=== PATIENT | male | born 1955 | race Two or more races ===

== ENCOUNTER 2019-10-10 22:06 | Inpatient (IN) | payer MEDICARE ==
[~2019-10-10] VITALS: Ht 175.3 cm; Wt 98.9 kg
[2019-10-10 22:57] LABS: BASOPHILS % (AUTO) 0.3 % (0.0-2.0); EOSINOPHILS % (AUTO) 1.1 % (0.0-3.0); HEMATOCRIT 28.8 % (42.0-52.0); HEMOGLOBIN 9.5 G/DL (14.2-18.0); LYMPHOCYTES % (AUTO) 9.2 % (20.0-45.0); MEAN CORPUSCULAR VOLUME 95 FL (80-99); NEUTROPHILS % (AUTO) 84.4 % (45.0-75.0); PLATELET COUNT 190 K/UL (150-450); RED BLOOD COUNT 3.04 M/UL (4.70-6.10); RED CELL DISTRIBUTION WIDTH 13.5 % (11.6-14.8); WHITE BLOOD COUNT 7.5 K/UL (4.8-10.8)
[2019-10-10 23:00] VITALS: BP 196/104
[2019-10-10] MEDS ORDERED: dexAMETHasone 10mg/ml Inj IV ONE (23:00)
--- NOTE | 2019-10-10 23:02 | Diagnostic Imaging Report ---
EXAM: XR Chest, 1 View CLINICAL HISTORY: SOB TECHNIQUE: Frontal view of the chest. COMPARISON: 09/05/08 FINDINGS: Lungs: Extensive bilateral mid and lower lung patchy airspace opacities could represent multifocal pneumonia including viral pneumonia. This can also be seen with pulmonary edema. Pleural space: Unremarkable. No pneumothorax. Heart: Unremarkable. No cardiomegaly. Mediastinum: Mildly prominent cardio mediastinal silhouette, likely due at least in part to portable technique. Bones/joints: No acute abnormality Other findings: If there is further concern, consider CT. IMPRESSION: 1. Extensive bilateral mid and lower lung patchy airspace opacities could represent multifocal pneumonia including viral pneumonia. This can also be seen with pulmonary edema. 2. Mildly prominent cardio mediastinal silhouette, likely due at least in part to portable technique. 3. If there is further concern, consider CT.
[2019-10-10 23:11] LABS: ANION GAP 16 mmol/L (5-15); BLOOD UREA NITROGEN 68 mg/dL (7-18); CALCIUM 7.8 MG/DL (8.5-10.1); CARBON DIOXIDE 20 MMOL/L (21-32); CHLORIDE 95 MMOL/L (98-107); CREATININE 7.9 MG/DL (0.55-1.30); POTASSIUM 4.2 MMOL/L (3.5-5.1); SODIUM 131 MMOL/L (136-145)
[2019-10-10 23:27] LABS: ALANINE AMINOTRANSFERASE 20 U/L (12-78); ALBUMIN 2.4 G/DL (3.4-5.0); ALBUMIN/GLOBULIN RATIO 0.4 (1.0-2.7); ALKALINE PHOSPHATASE 76 U/L (46-116); ASPARTATE AMINO TRANSFERASE 22 U/L (15-37); BILIRUBIN,TOTAL 0.4 MG/DL (0.2-1.0); CKMB 2.6 NG/ML (0.0-3.6); FERRITIN 249 NG/ML (8-388)
[2019-10-10] MEDS ORDERED: Azithromycin 500 MG in NS 275 ML IV ONE (23:30)
[2019-10-10] MEDS ORDERED: cefTRIAXone 1 GM in NS 55 ML IVPB ONE (23:30)
[2019-10-10] MEDS ORDERED: Enoxaparin 60mg Inj SUBQ ONE (23:30)
[2019-10-11] VITALS (9 sets, daily range): BP systolic 154–190; BP diastolic 66–103
[2019-10-11] MEDS ORDERED: Zolpidem 5mg tab ORAL PRN (00:30)
[2019-10-11] MEDS ORDERED: Promethazine/Codeine 5ml UD ORAL PRN (00:30)
[2019-10-11] MEDS ORDERED: Miralax 17gm pkt ORAL PRN (00:30)
[2019-10-11] MEDS ORDERED: Albuterol/Ipratropium 3ml neb HHN PRN ×2 (00:30)
--- NOTE | 2019-10-11 00:47 | Emergency Room Report ---
History of Present Illness General Chief Complaint: Dyspnea/Respdistress Source: Patient, EMS Present Illness HPI 63-year-old male presents for shortness of breath. Brought in by EMS from home. O2 sats low on room air. Patient tested positive for COVID last week. Started getting short of breath few days ago. Denies chest pain. Denies fevers or chills. Denies nausea or vomiting. No other aggravating relieving factors. 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 COVID-19 Screening: Positive COVID-19 COVID-19 Testing Source: outside source Patient History Past Medical History: DM, HTN Past Surgical History: none Pertinent Family History: none Social History: Denies: smoking, alcohol use, drug use Immunizations: UTD Reviewed Nursing Documentation: PMH: Agreed; PSxH: Agreed Nursing Documentation-PMH Hx Hypertension: Yes Hx Diabetes: Yes Review of Systems All Other Systems: negative except mentioned in HPI Physical Exam Vital Signs Date Time Temp Pulse Resp B/P (MAP) Pulse Ox O2 Delivery O2 Flow Rate FiO2 10/10/19 22:03 99.3 110 26 220/110 (146) 84 Nasal Cannula 6.0 Sp02 EP Interpretation: reviewed, normal General Appearance: no apparent distress, alert, GCS 15, non-toxic Head: normocephalic, atraumatic Eyes: bilateral eye normal inspection, bilateral eye PERRL ENT: hearing grossly normal, normal pharynx, no angioedema, normal voice Neck: full range of motion, supple/symm/no masses Respiratory: chest non-tender, normal breath sounds, crackles, speaking full sentences Cardiovascular #1: regular rate, rhythm, no edema Cardiovascular #2: 2+ carotid (R), 2+ carotid (L), 2+ radial (R), 2+ radial (L) , 2+ dorsalis pedis (R), 2+ dorsalis pedis (L) Gastrointestinal: normal bowel sounds, non tender, soft, non-distended, no guarding, no rebound Rectal: deferred Genitourinary: normal inspection, no CVA tenderness Musculoskeletal: back normal, normal range of motion, gait/station normal, non- tender Neurologic: alert, motor strength/tone normal, oriented x3, sensory intact, responsive, speech normal Psychiatric: judgement/insight normal, memory normal, mood/affect normal, no suicidal/homicidal ideation Reflexes: 3+ bicep (R), 3+ bicep (L), 3+ tricep (R), 3+ tricep (L), 3+ knee (R) , 3+ knee (L) Skin: other - see nursing notes Lymphatic: no adenopathy Procedures Critical Care Time Critical Care Time i. I feel this is a highly complex case requiring extensive working including EKG/Rhythm strip, Xray/CT/US, Blood/urine lab work, repeat exams while in ED, and administration of strong opiates/narcotics for pain control, admission to hospital or close patient follow up. Total time: 60 min bedside evaluation and treatment excludes procedures (EKG). Reason for critical care: SOB, COVID+, hypoxic Possible complications: hypotension, hypertension, GA, shock, arrhythmias, metabolic acidosis, end organ damage, respiratory failure. Interventions: labs, EKG, CXR, COVID, Dexamethasone, Lovenox, Abx Course: Patient presenting with shortness of breath. Placed on simple mask. Tested positive for COVID last week. Rapid COVID positive. Chest x-ray shows diffuse bilateral infiltrates. BUN/creatinine elevated. History of end-stage renal disease. CRP elevated. D-dimer elevated. Given dexamethasone. Given Lovenox. Given antibiotics. Consultations: nursing staff, EMS, family Performed by: Dr Amador Tolerated well condition = serious j. because of unstable vital signs this patient had a condition that could potentially threaten life or limb. I feel this is a critical patient who required my full attention while patient was considered critical. Total Critical Care Time excluding procedures was greater than 60 minutes Medical Decision Making Diagnostic Impression: Primary Impression: COVID-19 Additional Impressions: Dyspnea Qualified Codes: R06.00 - Dyspnea, unspecified ESRD (end stage renal disease) ER Course Hospital Course 63-year-old male presents with hypoxia, shortness of breath. Recent COVID positive diagnosis Differential diagnoses include: Pneumonia, CHF exacerbation, pneumothorax, fluid overload Clinical course Patient placed on stretcher. In isolation. I wore full PPE. On director of cardiac rehabilitation with hypoxia on room air. started on simple mask. After initial history and physical, I ordered labs, EKG, chest x-ray, blood cultures, UA. Labs - no leukocytosis, hemoglobin/hematocrit stable, BUN/Cr elevated, lactate okay troponins negative CRP eelvated, ddimer elevated, rapid COVID positive EKG - NSR no acute ischemic changes interpreted by me CXR - bilateral patchy opacities concerning for COVID O2 sats improved on simple mask. Not in respiratory distress. Speaking full sentences. Given dexamethasone. given lovenox. given broad abx Patient is [facility] However they are unable to facilitate transfer for COVID positive patients at this time Case discussed with Dr. Arceo and he agreed to the patient to his service for further care and support I feel this is a highly complex case requiring extensive working including EKG/ Rhythm strip, Xray/CT/US, Blood/urine lab work, repeat exams while in ED, and administration of strong opiates/narcotics for pain control, admission to hospital or close patient follow up. Diagnosis -COVID 19, dyspnea, ESRD Patient admitted to telemetry in serious condition Labs Test 10/10/19 22:35 White Blood Count 7.5 K/UL (4.8-10.8) Red Blood Count 3.04 M/UL (4.70-6.10) Hemoglobin 9.5 G/DL (14.2-18.0) Hematocrit 28.8 % (42.0-52.0) Mean Corpuscular Volume 95 FL (80-99) Mean Corpuscular Hemoglobin 31.2 PG (27.0-31.0) Mean Corpuscular Hemoglobin Concent 32.9 G/DL (32.0-36.0) Red Cell Distribution Width 13.5 % (11.6-14.8) Platelet Count 190 K/UL (150-450) Mean Platelet Volume 4.7 FL (6.5-10.1) Neutrophils (%) (Auto) 84.4 % (45.0-75.0) Lymphocytes (%) (Auto) 9.2 % (20.0-45.0) Monocytes (%) (Auto) 5.0 % (1.0-10.0) Eosinophils (%) (Auto) 1.1 % (0.0-3.0) Basophils (%) (Auto) 0.3 % (0.0-2.0) Prothrombin Time 10.8 SEC (9.30-11.50) Prothromb Time International Ratio 1.0 (0.9-1.1) Activated Partial Thromboplast Time 34 SEC (23-33) D-Dimer 1.26 mg/L FEU (0.00-0.49) Sodium Level 131 MMOL/L (136-145) Potassium Level 4.2 MMOL/L (3.5-5.1) Chloride Level 95 MMOL/L (98-107) Carbon Dioxide Level 20 MMOL/L (21-32) Anion Gap 16 mmol/L (5-15) Blood Urea Nitrogen 68 mg/dL (7-18) Creatinine 7.9 MG/DL (0.55-1.30) Estimat Glomerular Filtration Rate 7.0 mL/min (>60) Glucose Level 261 MG/DL (74-106) Lactic Acid Level 0.70 mmol/L (0.4-2.0) Calcium Level 7.8 MG/DL (8.5-10.1) Ferritin 249 NG/ML (8-388) Total Bilirubin 0.4 MG/DL (0.2-1.0) Aspartate Amino Transf (AST/SGOT) 22 U/L (15-37) Alanine Aminotransferase (ALT/SGPT) 20 U/L (12-78) Alkaline Phosphatase 76 U/L (46-116) Lactate Dehydrogenase 304 U/L (81-234) Creatine Kinase MB 2.6 NG/ML (0.0-3.6) Troponin I 0.000 ng/mL (0.000-0.056) C-Reactive Protein, Quantitative 52.3 mg/dL (0.00-0.90) Total Protein 8.2 G/DL (6.4-8.2) Albumin 2.4 G/DL (3.4-5.0) Globulin 5.8 g/dL Albumin/Globulin Ratio 0.4 (1.0-2.7) EKG Diagnostic Results Rate: normal Rhythm: NSR ST Segments: no acute changes ASA given to the pt in ED: No Rhythm Strip Diag. Results EP Interpretation: yes Rhythm: NSR, no PVC's, no ectopy Chest X-Ray Diagnostic Results Chest X-Ray Diagnostic Results : Chest X-Ray Ordered: Yes # of Views/Limited/Complete: 1 View Indication: Shortness of Breath EP Interpretation: Yes Interpretation: no effusion, no pneumothorax, other - bilateral patchy infiltrates Impression: Other - pneumonia Electronically Signed by: Electronically signed by Ren Amador MD Last Vital Signs Date Time Temp Pulse Resp B/P (MAP) Pulse Ox O2 Delivery O2 Flow Rate FiO2 10/10/19 22:03 99.3 110 26 220/110 (146) 84 Nasal Cannula 6.0 Status: improved Disposition: ADMITTED INPATIENT Condition: Serious Referrals: [facility] (PCP) Ren Amador MD Oct 11, 2019 00:47
[2019-10-11] MEDS ORDERED: LORAZEPAM2 MG/1 M4 ORAL (01:55)
[2019-10-11] MEDS ORDERED: FERROUS SULFAT325 MG ORAL (01:56)
[2019-10-11] MEDS ORDERED: PROCRIT2000 UNIT/ SUBQ (01:57)
[2019-10-11] MEDS ORDERED: KEPPRA500 M4 ORAL (02:01)
[2019-10-11] MEDS ORDERED: LANTUS SOL100 UNIT/1 SUBQ (02:02)
[2019-10-11] MEDS ORDERED: GABAPENTIN100 MG ORAL (02:03)
[2019-10-11] MEDS ORDERED: ROXICODONE15 MG ORAL (02:04)
[2019-10-11] MEDS ORDERED: CALCIUM CARBON400 MG PO (02:07)
[2019-10-11] MEDS ORDERED: METOPROLOL TART25 MG ORAL (02:08)
[2019-10-11] MEDS ORDERED: AMLODIPINE BESYL5 MG ORAL (02:09)
[2019-10-11] MEDS ORDERED: LIPITOR80 MG ORAL (02:09)
[2019-10-11] MEDS ORDERED: CYMBALTA20 MG ORAL (02:10)
[2019-10-11] MEDS ORDERED: VITAMIN D310 MC1 PO (02:12)
[2019-10-11] MEDS ORDERED: ASPIRIN EC81 MG ORAL (02:13)
[2019-10-11] MEDS ORDERED: COZAAR100 MG ORAL (02:13)
[2019-10-11 03:35] LABS: APPEARANCE,URINE CLEAR; BILIRUBIN, URINE NEGATIVE (NEGATIVE); COLOR,URINE PALE YELLOW; GLUCOSE, URINE (UA) 3+ (NEGATIVE); KETONES,URINE NEGATIVE (NEGATIVE); LEUKOCYTE ESTERASE ,URINE NEGATIVE (NEGATIVE); NITRITE,URINE NEGATIVE (NEGATIVE); PH,URINE 5 (4.5-8.0); PROTEIN,URINE 4+ (NEGATIVE); UROBILINOGEN,URINE NORMAL MG/DL (0.0-1.0)
[2019-10-11] MEDS: NovoLOG Insulin Flexpen SUBQ SCH ×4 (06:29→22:17)
[2019-10-11 07:28] LABS: APPEARANCE,URINE CLEAR; BILIRUBIN, URINE NEGATIVE (NEGATIVE); COLOR,URINE PALE YELLOW; GLUCOSE, URINE (UA) 3+ (NEGATIVE); KETONES,URINE NEGATIVE (NEGATIVE); LEUKOCYTE ESTERASE ,URINE NEGATIVE (NEGATIVE); NITRITE,URINE NEGATIVE (NEGATIVE); PH,URINE 5 (4.5-8.0); PROTEIN,URINE 4+ (NEGATIVE); UROBILINOGEN,URINE NORMAL MG/DL (0.0-1.0)
[2019-10-11] MEDS ORDERED: Heparin 5000 units/ml inj SUBQ SCH (09:00)
[2019-10-11] MEDS: Heparin 5000 units/ml inj SUBQ SCH ×2 (09:30→22:16)
[2019-10-11 10:56] LABS: HEMOGLOBIN 9.2 G/DL (14.2-18.0); MEAN CORPUSCULAR VOLUME 93 FL (80-99); PLATELET COUNT 199 K/UL (150-450); RED BLOOD COUNT 2.99 M/UL (4.70-6.10); RED CELL DISTRIBUTION WIDTH 12.4 % (11.6-14.8); WHITE BLOOD COUNT 9.2 K/UL (4.8-10.8)
--- NOTE | 2019-10-11 11:32 | Consultation ---
Consult Note Consult Note Asked to evaluate at the request of Dr. Arceo, for renal failure Patient interviewed. Patient is known to have chronic kidney disease. Patient was planned to get started on peritoneal dialysis. Chief Complaint: Dyspnea/Respdistress 63-year-old male presents for shortness of breath. Brought in by EMS from home. O2 sats low on room air. Patient tested positive for COVID last week. Started getting short of breath few days ago. Denies chest pain. Denies fevers or chills. Denies nausea or vomiting. No other aggravating relieving factors. 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 GENERAL: Patient is well-developed and well-nourished male, who is in moderate respiratory distress. HEENT: Eyes, pupils are equal and responsive to light and accommodation. Extraocular movements are intact. NECK: Supple without lymphadenopathy. CHEST: Decreased breath sounds bases bilaterally occasional rhonchi CARDIOVASCULAR: Tachycardic, occasional irregular beats ABDOMEN: Soft, nontender, nondistended. Positive bowel sounds. No evidence of hepatosplenomegaly. Currently, no rebound or guarding noted. EXTREMITIES: Negative for clubbing, cyanosis, mild edema present RECTAL/GENITAL: Not performed. NEUROLOGIC: Cranial nerves II through XII grossly intact without focal deficits. Motor strength is 5/5 bilaterally. Deep tendon reflexes are 2+ plantar. LABORATORY STUDIES: WBC 7.5, hemoglobin 9.5, hematocrit 28.8, platelets 190,000. Sodium 131, potassium 4.2, chloride 95, CO2 20, BUN 68, creatinine 7.9, glucose 261. A chest x-ray was reported as extensive bilateral lower lung patchy airspace opacities consistent with pneumonia. . Assessment/Plan ESRD (end stage renal disease) COVID-19 Dyspnea HTN DM Plan: Discussed with patient and he is agreeable to dialysis. Will obtain consent and arrange for dialysis. Continue per consultants. Chest x-ray: IMPRESSION: 1. Extensive bilateral mid and lower lung patchy airspace opacities could represent multifocal pneumonia including viral pneumonia. This can also be seen with pulmonary edema. 2. Mildly prominent cardio mediastinal silhouette, likely due at least in part to portable technique. 3. If there is further concern, consider CT. Vel Michaels MD Oct 11, 2019 11:32
[2019-10-11 11:51] LABS: ANION GAP 15 mmol/L (5-15); BLOOD UREA NITROGEN 73 mg/dL (7-18); CALCIUM 7.7 MG/DL (8.5-10.1); CARBON DIOXIDE 20 MMOL/L (21-32); CHLORIDE 95 MMOL/L (98-107); CREATININE 8.4 MG/DL (0.55-1.30); POTASSIUM 5.4 MMOL/L (3.5-5.1); SODIUM 130 MMOL/L (136-145)
[2019-10-11 11:54] LABS: ALANINE AMINOTRANSFERASE 20 U/L (12-78); ALBUMIN 2.2 G/DL (3.4-5.0); ALBUMIN/GLOBULIN RATIO 0.4 (1.0-2.7); ALKALINE PHOSPHATASE 71 U/L (46-116); ASPARTATE AMINO TRANSFERASE 25 U/L (15-37); BILIRUBIN,TOTAL 0.3 MG/DL (0.2-1.0); CHOLESTEROL 102 MG/DL (< 200); HDL CHOLESTEROL 25 MG/DL (40-60); PHOSPHORUS 5.5 MG/DL (2.5-4.9); TRIGLYCERIDES 172 MG/DL (30-150)
[2019-10-11] MEDS ORDERED: Heparin1,000 units/500ml Premix(Conc:2 units/ml) IV PRN (12:15)
[2019-10-11] MEDS ORDERED: Lidocaine 1% Plain 30 ml INJ PRN (12:15)
--- NOTE | 2019-10-11 12:40 | Consultation ---
History of Present Illness General Date patient seen: Oct 11, 2019 Chief Complaint: Dyspnea/Respdistress Present Illness HPI 63-year-old male with hx of HTN, DM, advanced chronic renal insufficiency presented to ER with CC of shortness of breath. His O2 sats were low on room air. Patient tested positive for COVID last week and started getting short of breath few days ago. Pt's CXR in ER showed extensive bilateral infiltrate. He is admitted to [facility] for further evaluation. Allergies: Coded Allergies: No Known Allergies (Unverified , 10/10/19) Medication History Scheduled Amlodipine Besylate* (Amlodipine Besylate*), 5 MG ORAL DAILY, (Reported) Aspirin Ec* (Aspirin Ec*), 81 MG ORAL DAILY, (Reported) Atorvastatin (Lipitor), 80 MG ORAL BEDTIME, (Reported) Calcium Carbonate (Calcium Carbonate), 400 MG PO TID, (Reported) Cholecalciferol (Vitamin D3) (Vitamin D3), 1,000 UNITS PO DAILY, (Reported) Duloxetine (Cymbalta), 30 MG ORAL DAILY, (Reported) Epoetin Ellis (Procrit), 5,000 UNIT SUBQ QWEEK, (Reported) Ferrous Sulfate* (Ferrous Sulfate*), 325 MG ORAL BID, (Reported) Gabapentin* (Gabapentin*), 300 MG ORAL DAILY, (Reported) Insulin Glargine (Lantus), 20 SUBQ BID, (Reported) Levetiracetam (Keppra), 250 MG ORAL DAILY, (Reported) Lorazepam (Lorazepam), 1 MG ORAL BID, (Reported) Losartan Potassium (Cozaar), 50 MG ORAL DAILY, (Reported) Metoprolol Tartrate* (Metoprolol Tartrate*), 25 MG ORAL EVERY 12 HOURS, ( Reported) Scheduled PRN OXYCODONE HCl* (Roxicodone*), 5 MG ORAL Q4HR PRN for For Pain, (Reported) Patient History Healthcare decision maker Resuscitation status Advanced Directive on File Past Medical/Surgical History Past Medical/Surgical History: (1) Chronic renal failure, stage 4 (severe) (2) Diabetes mellitus (3) History of hypertension Review of Systems All Other Systems: negative except mentioned in HPI Physical Exam General Appearance: WD/WN, no apparent distress Lines, tubes and drains: peripheral HEENT: normocephalic, atraumatic Neck: non-tender, normal alignment Respiratory/Chest: chest wall non-tender, lungs clear Cardiovascular/Chest: normal peripheral pulses, normal rate Abdomen: normal bowel sounds, non tender Genitourinary/Rectal: normal genital exam, normal rectal exam Extremities: normal range of motion Skin Exam: normal pigmentation 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 Last 24 Hour Vital Signs Date Time Temp Pulse Resp B/P (MAP) Pulse Ox O2 Delivery O2 Flow Rate FiO2 10/11/19 09:00 Non-Rebreather 15.0 10/11/19 08:58 179/85 10/11/19 08:00 97.3 95 28 179/85 (116) 100 10/11/19 08:00 92 10/11/19 03:27 96 10/11/19 03:05 97.6 93 24 154/85 (108) 98 10/11/19 03:05 Non-Rebreather 15.0 10/11/19 02:24 97 10/11/19 02:16 97.9 88 20 177/94 (121) 98 10/11/19 02:10 98.8 90 21 161/66 98 Non-Rebreather 10.0 10/11/19 02:00 98.8 90 21 161/66 98 Non-Rebreather 10.0 10/11/19 01:00 98.8 92 24 179/90 97 Non-Rebreather 10.0 10/11/19 00:00 98.9 99 24 190/103 98 Non-Rebreather 10.0 10/10/19 23:00 98.9 98 28 196/104 95 Non-Rebreather 10.0 10/10/19 22:30 110 26 Nasal Cannula 6.0 10/10/19 22:03 99.3 110 26 220/110 (146) 84 Nasal Cannula 6.0 Intake and Output 10/10/19 10/11/19 19:00 07:00 Intake Total 100 ml Output Total 400 ml Balance -300 ml Intake Oral 100 ml Output Urine Total 400 ml # Voids 1 Laboratory Tests Test 10/10/19 22:17 10/10/19 22:35 10/11/19 03:23 10/11/19 06:00 Arterial Blood pH 7.264 (7.350-7.450) Arterial Blood Partial Pressure CO2 38.0 mmHg (35.0-45.0) Arterial Blood Partial Pressure O2 125.8 mmHg (75.0-100.0) H Arterial Blood HCO3 16.8 mmol/L (22.0-26.0) *L Arterial Blood Oxygen Saturation 97.7 % (95-100) Arterial Blood Base Excess -9.4 (-2-2) *L Migel Test Positive White Blood Count 7.5 K/UL (4.8-10.8) Red Blood Count 3.04 M/UL (4.70-6.10) L Hemoglobin 9.5 G/DL (14.2-18.0) L Hematocrit 28.8 % (42.0-52.0) L Mean Corpuscular Volume 95 FL (80-99) Mean Corpuscular Hemoglobin 31.2 PG (27.0-31.0) H Mean Corpuscular Hemoglobin Concent 32.9 G/DL (32.0-36.0) Red Cell Distribution Width 13.5 % (11.6-14.8) Platelet Count 190 K/UL (150-450) Mean Platelet Volume 4.7 FL (6.5-10.1) L Neutrophils (%) (Auto) 84.4 % (45.0-75.0) H Lymphocytes (%) (Auto) 9.2 % (20.0-45.0) L Monocytes (%) (Auto) 5.0 % (1.0-10.0) Eosinophils (%) (Auto) 1.1 % (0.0-3.0) Basophils (%) (Auto) 0.3 % (0.0-2.0) Prothrombin Time 10.8 SEC (9.30-11.50) Prothromb Time International Ratio 1.0 (0.9-1.1) Activated Partial Thromboplast Time 34 SEC (23-33) H D-Dimer 1.26 mg/L FEU (0.00-0.49) H Sodium Level 131 MMOL/L (136-145) L Potassium Level 4.2 MMOL/L (3.5-5.1) Chloride Level 95 MMOL/L (98-107) L Carbon Dioxide Level 20 MMOL/L (21-32) L Anion Gap 16 mmol/L (5-15) H Blood Urea Nitrogen 68 mg/dL (7-18) H Creatinine 7.9 MG/DL (0.55-1.30) H Estimat Glomerular Filtration Rate 7.0 mL/min (>60) Glucose Level 261 MG/DL (74-106) H Lactic Acid Level 0.70 mmol/L (0.4-2.0) Calcium Level 7.8 MG/DL (8.5-10.1) L Ferritin 249 NG/ML (8-388) Total Bilirubin 0.4 MG/DL (0.2-1.0) Aspartate Amino Transf (AST/SGOT) 22 U/L (15-37) Alanine Aminotransferase (ALT/SGPT) 20 U/L (12-78) Alkaline Phosphatase 76 U/L (46-116) Lactate Dehydrogenase 304 U/L (81-234) H Creatine Kinase MB 2.6 NG/ML (0.0-3.6) Troponin I 0.000 ng/mL (0.000-0.056) C-Reactive Protein, Quantitative 52.3 mg/dL (0.00-0.90) H Total Protein 8.2 G/DL (6.4-8.2) Albumin 2.4 G/DL (3.4-5.0) L Globulin 5.8 g/dL Albumin/Globulin Ratio 0.4 (1.0-2.7) L Urine Color Pale yellow Pale yellow Urine Appearance Clear Clear Urine pH 5 (4.5-8.0) 5 (4.5-8.0) Urine Specific [place] 1.020 (1.005-1.035) 1.015 (1.005-1.035) Urine Protein 4+ (NEGATIVE) H 4+ (NEGATIVE) H Urine Glucose (UA) 3+ (NEGATIVE) H 3+ (NEGATIVE) H Urine Ketones Negative (NEGATIVE) Negative (NEGATIVE) Urine Blood 2+ (NEGATIVE) H 2+ (NEGATIVE) H Urine Nitrite Negative (NEGATIVE) Negative (NEGATIVE) Urine Bilirubin Negative (NEGATIVE) Negative (NEGATIVE) Urine Urobilinogen Normal MG/DL (0.0-1.0) Normal MG/DL (0.0-1.0) Urine Leukocyte Esterase Negative (NEGATIVE) Negative (NEGATIVE) Urine RBC 2-4 /HPF (0 - 0) H 2-4 /HPF (0 - 0) H Urine WBC 0 /HPF (0 - 0) 0-2 /HPF (0 - 0) Urine Squamous Epithelial Cells Few /LPF (NONE/OCC) Occasional /LPF Urine Bacteria None /HPF (NONE) Occasional /HPF (NONE) Urine Random Sodium 40 mmol/L (20-110) Urine Potassium Timed 35 mmol/L (12-62) Urine Amorphous Sediment Few /LPF (NONE) H Urine Eosinophils None seen (NONE SEEN) Test 10/11/19 06:25 10/11/19 10:45 10/11/19 11:34 POC Whole Blood Glucose Pending Pending White Blood Count 9.2 K/UL (4.8-10.8) Red Blood Count 2.99 M/UL (4.70-6.10) L Hemoglobin 9.2 G/DL (14.2-18.0) L Hematocrit 28.0 % (42.0-52.0) L Mean Corpuscular Volume 93 FL (80-99) Mean Corpuscular Hemoglobin 30.8 PG (27.0-31.0) Mean Corpuscular Hemoglobin Concent 33.0 G/DL (32.0-36.0) Red Cell Distribution Width 12.4 % (11.6-14.8) Platelet Count 199 K/UL (150-450) Mean Platelet Volume 5.2 FL (6.5-10.1) L Neutrophils (%) (Auto) % (45.0-75.0) Lymphocytes (%) (Auto) % (20.0-45.0) Monocytes (%) (Auto) % (1.0-10.0) Eosinophils (%) (Auto) % (0.0-3.0) Basophils (%) (Auto) % (0.0-2.0) Differential Total Cells Counted 100 Neutrophils % (Manual) 89 % (45-75) H Lymphocytes % (Manual) 9 % (20-45) L Monocytes % (Manual) 2 % (1-10) Eosinophils % (Manual) 0 % (0-3) Basophils % (Manual) 0 % (0-2) Band Neutrophils 0 % (0-8) Platelet Estimate Adequate Platelet Morphology Normal Hypochromasia 1+ Sodium Level 130 MMOL/L (136-145) L Potassium Level 5.4 MMOL/L (3.5-5.1) H Chloride Level 95 MMOL/L (98-107) L Carbon Dioxide Level 20 MMOL/L (21-32) L Anion Gap 15 mmol/L (5-15) Blood Urea Nitrogen 73 mg/dL (7-18) H Creatinine 8.4 MG/DL (0.55-1.30) H Estimat Glomerular Filtration Rate 6.5 mL/min (>60) Glucose Level 271 MG/DL (74-106) H Hemoglobin A1c Pending Uric Acid 7.8 MG/DL (2.6-7.2) H Calcium Level 7.7 MG/DL (8.5-10.1) L Phosphorus Level 5.5 MG/DL (2.5-4.9) H Magnesium Level 1.7 MG/DL (1.8-2.4) L Total Bilirubin 0.3 MG/DL (0.2-1.0) Aspartate Amino Transf (AST/SGOT) 25 U/L (15-37) Alanine Aminotransferase (ALT/SGPT) 20 U/L (12-78) Alkaline Phosphatase 71 U/L (46-116) Total Creatine Kinase Pending C-Reactive Protein, Quantitative Pending Pro-B-Type Natriuretic Peptide 4035 pg/mL (0-125) H Total Protein 8.1 G/DL (6.4-8.2) Albumin 2.2 G/DL (3.4-5.0) L Globulin 5.9 g/dL Albumin/Globulin Ratio 0.4 (1.0-2.7) L Triglycerides Level 172 MG/DL (30-150) H Cholesterol Level 102 MG/DL (< 200) LDL Cholesterol 47 mg/dL (<100) HDL Cholesterol 25 MG/DL (40-60) L Cholesterol/HDL Ratio 4.1 (3.3-4.4) Microbiology Date/Time Source Procedure Growth Status 10/10/19 22:35 Nasopharynx SARS-CoV-2 RdRp Gene Assay - Final Complete Height (Feet): 5 Height (Inches): 9.00 Weight (Pounds): 198 Medications Current Medications Medications (Trade) Dose Ordered Sig/Adan Route PRN Reason Start Time Stop Time Status Last Admin Dose Admin Acetaminophen (Tylenol) 650 mg Q4H PRN ORAL fever 10/11/19 00:30 11/10/19 00:29 Albuterol/ Ipratropium (Albuterol/ Ipratropium) 3 ml Q6H PRN HHN dyspnea 10/11/19 00:30 10/16/19 00:29 Azithromycin 250 mg/Dextrose 275 ml @ 275 mls/hr Q24HRS IV 10/11/19 21:00 10/16/19 20:59 Ceftriaxone Sodium 1 gm/ Dextrose 55 ml @ 110 mls/hr Q24H IVPB 10/11/19 20:00 10/18/19 19:59 Clonidine HCl (Catapres Tab) 0.1 mg EVERY 8 HOURS ORAL 10/11/19 14:00 01/09/20 13:59 Clonidine HCl (Catapres Tab) 0.1 mg Q4H PRN ORAL For High Blood Pressure 10/11/19 00:30 01/09/20 00:29 10/11/19 08:58 Dexamethasone (Decadron) 4 mg DAILY ORAL 10/11/19 09:00 11/10/19 08:59 10/11/19 08:58 Dextrose (Dextrose 50%) 25 ml Q30M PRN IV Hypoglycemia 10/11/19 00:30 01/09/20 00:29 Dextrose (Dextrose 50%) 50 ml Q30M PRN IV Hypoglycemia 10/11/19 00:30 01/09/20 00:29 Docusate Sodium (Colace) 100 mg THREE TIMES A DAY ORAL 10/11/19 13:00 11/10/19 12:59 Heparin Sodium (Porcine) (Heparin 5000 units/ml) 5,000 units EVERY 12 HOURS SUBQ 10/11/19 09:00 11/25/19 08:59 10/11/19 09:30 Heparin Sodium/ Sodium Chloride (Heparin 1000 units/500ml Premix) 1,000 unit ONCE PRN IV radiology procedure 10/11/19 12:15 10/13/19 12:14 Insulin Aspart (NovoLOG) BEFORE MEALS AND HS SUBQ 10/11/19 06:30 01/09/20 06:29 10/11/19 11:38 Lidocaine HCl (Xylocaine 1% 30ml) 30 ml ONCE PRN INJ radiology procedure 10/11/19 12:15 10/13/19 12:14 Ondansetron HCl (Zofran) 4 mg Q6H PRN IVP Nausea & Vomiting 10/11/19 00:30 11/10/19 00:29 Pantoprazole (Protonix) 40 mg EVERY 12 HOURS ORAL 7/20/20 12:00 11/10/19 11:59 Polyethylene Glycol (Miralax) 17 gm HSPRN PRN ORAL Constipation 10/11/19 00:30 11/10/19 00:29 Promethazine HCl/ Codeine (Phenergan with Codeine) 5 ml Q6H PRN ORAL cough 10/11/19 00:30 11/10/19 00:29 Zolpidem Tartrate (Ambien) 5 mg HSPRN PRN ORAL Insomnia 10/11/19 00:30 10/18/19 00:29 Assessment/Plan Problem List: (1) Pneumonia due to COVID-19 virus ICD Codes: U07.1 - COVID-19; J12.89 - Other viral pneumonia SNOMED: 569588303, 758979327 (2) Pulmonary edema ICD Codes: J81.1 - Chronic pulmonary edema SNOMED: 37665262 (3) ESRD (end stage renal disease) ICD Codes: N18.6 - End stage renal disease SNOMED: 50936387 (4) Suspected COVID-19 virus infection ICD Codes: Z20.828 - Contact with and (suspected) exposure to other viral communicable diseases SNOMED: 282664707 (5) Chronic renal failure, stage 4 (severe) ICD Codes: N18.4 - Chronic kidney disease, stage 4 (severe) SNOMED: 57395369, 924187420 (6) Diabetes mellitus ICD Codes: E11.9 - Type 2 diabetes mellitus without complications SNOMED: 17980220 (7) History of hypertension ICD Codes: Z86.79 - Personal history of other diseases of the circulatory system SNOMED: 066035904 Assessment/Plan: Respiratory treatment titrate fio2 to sat of 92% IV abx ID to see sliding scale diabetic diet check sputum Renal to arrange for HD HD access placement. Kemar Tillman MD Oct 11, 2019 12:40
[2019-10-11] MEDS: Docusate 100mg cap ORAL SCH ×2 (13:00→17:09)
[2019-10-11 13:07] LABS: CREATINE KINASE 219 U/L (26-308)
--- NOTE | 2019-10-11 13:43 | History & Physical ---
History and Physical History & Physicial Dictated for Int Med-DR Arceo no. [id number]. Step down unit [place] Arora MD Oct 11, 2019 13:43
--- NOTE | 2019-10-11 16:05 | Pre-Procedure Note/Attestation ---
Pre-Procedure Note/Attestation Complete Prior to Procedure Planned Procedure: not applicable Procedure Narrative: Miko catheter Indications for Procedure Pre-Operative Diagnosis: renal failure Attestation I attest that I discussed the nature of the procedure; its benefits; risks and complications; and alternatives (and the risks and benefits of such alternatives ), prior to the procedure, with the patient (or the patient's legal public service representative). I attest that, if there was a reasonable possibility of needing a blood transfusion, the patient (or the patient's legal public service representative) was given the [facility] standardized written summary, pursuant to the [place] Blood Safety Act ([place] Health and Safety Code # 1645, as amended). I attest that I re-evaluated the patient just prior to the surgery and that there has been no change in the patient's H&P, except as documented below: Alejo Phelps MD Oct 11, 2019 16:05
--- NOTE | 2019-10-11 16:06 | Brief Operative Note ---
Immediate Post Operative Note Operative Note Pre-op Diagnosis: renal failure Procedure: R IJV celine catheter Post-op Diagnosis: same as pre-op Surgeon: Joey Castro Anesthesia: local Specimen: none Complications: none Fluids: none Implant(s) used?: No Alejo Castro MD Oct 11, 2019 16:06
--- NOTE | 2019-10-11 16:45 | History and Physical Report ---
DATE OF ADMISSION: 10/10/2019 CHIEF COMPLAINT: Patient is a 63-year-old male, who presents with a chief complaint of shortness of breath. HISTORY OF PRESENT ILLNESS: Patient was diagnosed with COVID-19 one week previously. Since that time, patient has become increasingly short of breath. Patient became severely short of breath on 10/10/2019. EMS was called. Patient was found to have oxygen saturation in the 80s on room air. Patient was transported to [facility]. An initial chest x-ray showed bilateral pneumonia. Patient is admitted with COVID-19 pneumonia and hypoxia. REVIEW OF SYSTEMS: CONSTITUTIONAL: Patient denies weight loss or gain. Patient denies fevers or chills. HEENT: Patient denies ear or throat pain. Patient denies headache. CARDIOVASCULAR: Patient denies palpitations or chest pain. CHEST: Patient complains of shortness of breath. Patient denies wheezes. Patient does have a cough productive of yellowish sputum. ABDOMEN: Patient denies nausea, vomiting, diarrhea, or constipation. GENITOURINARY: Patient denies dysuria or increased frequency of urination. NEUROMUSCULAR: Patient denies seizures or generalized weakness. PAST MEDICAL HISTORY: Significant for: 1. Type 2 diabetes. 2. Hypertension. PAST SURGICAL HISTORY: Patient denies. CURRENT MEDICATIONS: 1. Amlodipine 5 mg p.o. daily. 2. Aspirin 81 mg p.o. daily. 3. Atorvastatin 80 mg p.o. at bedtime. 4. Vitamin D3 1000 units orally daily. 5. Cymbalta 30 mg p.o. daily. 6. Procrit 5000 units subcutaneously weekly. 7. Iron sulfate 325 mg p.o. twice daily. 8. Gabapentin 300 mg p.o. daily. 9. Lantus insulin 20 units subcutaneously twice daily. 10. Keppra 250 mg p.o. daily. 11. Cozaar 50 mg p.o. daily. 12. Metoprolol 25 mg p.o. twice daily. 13. Oxycodone 5 mg p.o. q.4h. p.r.n. 14. Lorazepam 2 mg p.o. twice daily. ALLERGIES: No known drug allergies. SOCIAL HISTORY: Patient is single and lives at home with his family. Patient denies tobacco or alcohol use. PHYSICAL EXAMINATION: VITAL SIGNS: Temperature 99.3, respirations 26, pulse 110, blood pressure 220/110, oxygen saturation 84% on 6 liters per nasal cannula. GENERAL: Patient is well-developed and well-nourished male, who is in moderate respiratory distress. HEENT: Eyes, pupils are equal and responsive to light and accommodation. Extraocular movements are intact. NECK: Supple without lymphadenopathy. CHEST: Lungs are clear to auscultation bilaterally without wheezes or rales. CARDIOVASCULAR: Regular rhythm and rate. S1-S2 are normal without murmurs, rubs, or gallops. ABDOMEN: Soft, nontender, nondistended. Positive bowel sounds. No evidence of hepatosplenomegaly. Currently, no rebound or guarding noted. EXTREMITIES: Negative for clubbing, cyanosis, or edema. RECTAL/GENITAL: Not performed. NEUROLOGIC: Cranial nerves II through XII grossly intact without focal deficits. Motor strength is 5/5 bilaterally. Deep tendon reflexes are 2+ plantar. LABORATORY STUDIES: WBC 7.5, hemoglobin 9.5, hematocrit 28.8, platelets 190,000. Sodium 131, potassium 4.2, chloride 95, CO2 20, BUN 68, creatinine 7.9, glucose 261. A chest x-ray was reported as extensive bilateral lower lung patchy airspace opacities consistent with pneumonia. ASSESSMENT: This is a 63-year-old male. 1. COVID-19 positive. 2. Bilateral pneumonia. 3. Shortness of breath. 4. Acute renal failure. 5. Diabetes type 2. 6. Uncontrolled hypertension. 7. Hypercholesteremia. TREATMENT: 1. Bilateral pneumonia/COVID-19 positive. An Infectious Disease consultation has been obtained with Dr. Gunderson. Patient has been started empirically on ceftriaxone and azithromycin for underlying bacterial pneumonia. Patient has been started on Decadron. We will follow recommendations of Pulmonary and Infectious Disease. Pulmonary consultation has been obtained with Dr. Kemar Tillman. 2. Diabetes type 2. Patient has been placed on regular insulin sliding scale. 3. Uncontrolled hypertension. Continue antihypertensive medications as above. Patient has been started empirically on clonidine 0.1 mg p.o. q.4h. p.r.n. 4. Acute renal failure. A Nephrology consultation has been obtained with Dr. Vel Michaels. We will follow recommendations of Nephrology. 5. Hypercholesterolemia. Continue atorvastatin as above. [place] Liliana Arora DR: CAYETANO JOB#: [id number] CC:
--- NOTE | 2019-10-11 17:19 | Diagnostic Imaging Report ---
Indication: Acute renal failure Technique: Procedure performed at bedside. Procedural timeout performed. Ultrasound documented patent compressible right internal jugular vein. Total sterile technique, including sterile probe cover and sterile gel, sterile gloves, hand hygiene, hat, mask, sterile gown, large sterile drape, and preparation with 2% chlorhexidine utilized. Local anesthesia with 1% lidocaine. Under real-time ultrasound guidance, puncture right internal jugular vein using 18-gauge needle, passage 0.035 guidewire, over which was passed serial dilators and then a 13 Turkish 15 cm triple-lumen temporary dialysis catheter. Guidewire was removed. Catheter ports were aspirated and flushed. The catheter was fixed to the skin. Patient tolerated procedure well. A chest x-ray was obtained, documents catheter tip position at the mid superior vena cava. Comparison: 10/10/2019 Findings: As above Impression: Successful bedside placement of right transjugular temporary dialysis catheter, as described.
[2019-10-11] MEDS ORDERED: cefTRIAXone 1 GM in D5W 55 ML IVPB SCH (20:00)
[2019-10-11] MEDS ORDERED: Azithromycin 250 MG in D5W 275 ML IV SCH (21:00)
[2019-10-11] MEDS: cefTRIAXone 1 GM in NS 55 ML IVPB SCH (21:30)
[2019-10-11] MEDS: Azithromycin 250 MG in NS 275 ML IV SCH (22:17)
[2019-10-12] VITALS (7 sets, daily range): BP systolic 136–172; BP diastolic 71–89
[2019-10-12] MEDS: NovoLOG Insulin Flexpen SUBQ SCH ×4 (05:21→21:00)
[2019-10-12 05:38] LABS: HEMATOCRIT 26.5 % (42.0-52.0); HEMOGLOBIN 8.7 G/DL (14.2-18.0); MEAN CORPUSCULAR VOLUME 92 FL (80-99); PLATELET COUNT 224 K/UL (150-450); RED BLOOD COUNT 2.88 M/UL (4.70-6.10); RED CELL DISTRIBUTION WIDTH 12.7 % (11.6-14.8); WHITE BLOOD COUNT 8.8 K/UL (4.8-10.8)
[2019-10-12 06:23] LABS: ALANINE AMINOTRANSFERASE 17 U/L (12-78); ALBUMIN 2.3 G/DL (3.4-5.0); ALBUMIN/GLOBULIN RATIO 0.4 (1.0-2.7); ALKALINE PHOSPHATASE 71 U/L (46-116); ANION GAP 15 mmol/L (5-15); ASPARTATE AMINO TRANSFERASE 25 U/L (15-37); BILIRUBIN,TOTAL 0.3 MG/DL (0.2-1.0); BLOOD UREA NITROGEN 49 mg/dL (7-18); CALCIUM 8.8 MG/DL (8.5-10.1); CARBON DIOXIDE 26 MMOL/L (21-32); CHLORIDE 97 MMOL/L (98-107); CHOLESTEROL 123 MG/DL (< 200); CREATININE 6.3 MG/DL (0.55-1.30); HDL CHOLESTEROL 27 MG/DL (40-60); POTASSIUM 3.7 MMOL/L (3.5-5.1); SODIUM 138 MMOL/L (136-145); TRIGLYCERIDES 188 MG/DL (30-150)
[2019-10-12 06:26] LABS: % IRON SATURATION 14 % (15-50); IRON 25 ug/dL (50-175); TOTAL IRON BINDING CAPACITY 178 ug/dL (250-450)
[2019-10-12 06:27] LABS: LACTATE DEHYDROGENASE 330 U/L (81-234); PHOSPHORUS 5.3 MG/DL (2.5-4.9)
[2019-10-12] MEDS: Docusate 100mg cap ORAL SCH ×3 (08:34→17:43)
[2019-10-12] MEDS: Heparin 5000 units/ml inj SUBQ SCH ×2 (08:37→21:00)
--- NOTE | 2019-10-12 09:20 | Diagnostic Imaging Report ---
Indication: Dyspnea Technique: One view of the chest Comparison: 10/11/2019 Findings: Right jugular temporary dialysis catheter, bilateral left greater than right infiltrates are unchanged. The pleural spaces remain clear. The heart size is normal Impression: Unchanged, over one day, findings as above.
--- NOTE | 2019-10-12 11:25 | Pulmonology Progress Note ---
Subjective ROS Limited/Unobtainable: Yes Allergies: Coded Allergies: No Known Allergies (Unverified , 10/10/19) Objective Last 24 Hour Vital Signs Date Time Temp Pulse Resp B/P (MAP) Pulse Ox O2 Delivery O2 Flow Rate FiO2 10/12/19 08:00 96 10/12/19 08:00 98.1 91 20 160/71 (100) 95 10/12/19 05:08 150/72 10/12/19 04:00 97.8 102 20 150/72 (98) 95 10/12/19 03:44 88 10/12/19 00:00 98.2 101 20 159/87 (111) 94 10/11/19 23:35 88 10/11/19 22:17 170/71 10/11/19 21:00 Nasal Cannula 6.0 10/11/19 20:00 97.4 94 19 170/71 (104) 94 10/11/19 20:00 102 10/11/19 16:00 94 10/11/19 16:00 96.8 90 28 178/75 (109) 92 10/11/19 13:55 159/93 10/11/19 12:00 97.0 93 28 159/93 (115) 93 10/11/19 12:00 94 Intake and Output 10/11/19 10/12/19 19:00 07:00 Intake Total 100 ml 1085 ml Output Total 250 ml 2600 ml Balance -150 ml -1515 ml Intake Oral 100 ml 700 ml IV Total 385 ml Output Urine Total 250 ml 600 ml Hemodialysis UF 2000 ml General Appearance: WD/WN HEENT: normocephalic, atraumatic Respiratory: chest wall non-tender, lungs clear Cardiovascular: normal peripheral pulses, normal rate Abdomen: normal bowel sounds, soft, non tender Genitourinary: normal external genitalia Extremities: no cyanosis Skin: no rash 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: 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 grossly normal Microbiology Date/Time Source Procedure Growth Status 10/10/19 22:50 Blood Blood Culture - Preliminary NO GROWTH AFTER 24 HOURS Resulted 10/10/19 22:35 Blood Blood Culture - Preliminary NO GROWTH AFTER 24 HOURS Resulted 10/10/19 22:35 Nasopharynx SARS-CoV-2 RdRp Gene Assay - Final Complete Laboratory Tests 10/11/19 11:34: POC Whole Blood Glucose [Pending] 10/11/19 17:20: POC Whole Blood Glucose 287H 10/11/19 20:01: POC Whole Blood Glucose 154H 10/12/19 04:45: White Blood Count 8.8, Red Blood Count 2.88L, Hemoglobin 8.7L, Hematocrit 26.5L , Mean Corpuscular Volume 92, Mean Corpuscular Hemoglobin 30.3, Mean Corpuscular Hemoglobin Concent 32.9, Red Cell Distribution Width 12.7, Platelet Count 224, Mean Platelet Volume 5.1L, Neutrophils (%) (Auto) , Lymphocytes (%) ( Auto) , Monocytes (%) (Auto) , Eosinophils (%) (Auto) , Basophils (%) (Auto) , Differential Total Cells Counted 100, Neutrophils % (Manual) 88H, Lymphocytes % (Manual) 7L, Monocytes % (Manual) 5, Eosinophils % (Manual) 0, Basophils % ( Manual) 0, Band Neutrophils 0, Platelet Estimate Adequate, Platelet Morphology Normal, Polychromasia 1+, Hypochromasia 1+, Erythrocyte Sedimentation Rate 110H , Reticulocyte Count 1.0, Prothrombin Time 11.1, Prothromb Time International Ratio 1.0, Activated Partial Thromboplast Time 32, Sodium Level 138, Potassium Level 3.7, Chloride Level 97L, Carbon Dioxide Level 26, Anion Gap 15, Blood Urea Nitrogen 49H, Creatinine 6.3H, Estimat Glomerular Filtration Rate 9.1, Glucose Level 161#H, Calcium Level 8.8, Phosphorus Level 5.3H, Magnesium Level 2.0, Iron Level 25L, Total Iron Binding Capacity 178L, Percent Iron Saturation 14L, Unsaturated Iron Binding 153, Total Bilirubin 0.3, Aspartate Amino Transf ( AST/SGOT) 25, Alanine Aminotransferase (ALT/SGPT) 17, Alkaline Phosphatase 71, Lactate Dehydrogenase 330H, C-Reactive Protein, Quantitative 31.9H, Pro-B-Type Natriuretic Peptide 5391H, Total Protein 8.1, Albumin 2.3L, Globulin 5.8, Albumin/Globulin Ratio 0.4L, Triglycerides Level 188H, Cholesterol Level 123, LDL Cholesterol 62, HDL Cholesterol 27L, Cholesterol/HDL Ratio 4.6H, Carcinoembryonic Antigen [Pending], Vitamin B12 Level > 2000H, Folate 16.6, Thyroid Stimulating Hormone (TSH) 0.621 10/12/19 05:11: POC Whole Blood Glucose 154H Current Medications Medications (Trade) Dose Ordered Sig/Adan Route PRN Reason Start Time Stop Time Status Last Admin Dose Admin Acetaminophen (Tylenol) 650 mg Q4H PRN ORAL fever 10/11/19 00:30 11/10/19 00:29 10/12/19 08:39 Albuterol/ Ipratropium (Albuterol/ Ipratropium) 3 ml Q6H PRN HHN dyspnea 10/11/19 00:30 10/16/19 00:29 Azithromycin 250 mg/Sodium Chloride 275 ml @ 275 mls/hr Q24HRS IV 10/11/19 21:00 10/16/19 20:59 10/11/19 22:17 Ceftriaxone Sodium 1 gm/ Sodium Chloride 55 ml @ 110 mls/hr Q24H IVPB 10/11/19 20:00 10/18/19 19:59 10/11/19 21:30 Chlorhexidine Gluconate (Heaven-Hex 2%) 1 applic DAILY@2000 TOPIC 10/12/19 20:00 01/10/20 19:59 Clonidine HCl (Catapres Tab) 0.1 mg EVERY 8 HOURS ORAL 10/11/19 14:00 01/09/20 13:59 10/12/19 05:08 Clonidine HCl (Catapres Tab) 0.1 mg Q4H PRN ORAL For High Blood Pressure 10/11/19 00:30 01/09/20 00:29 10/11/19 08:58 Dexamethasone (Decadron) 4 mg DAILY ORAL 10/11/19 09:00 11/10/19 08:59 10/12/19 08:34 Dextrose (Dextrose 50%) 25 ml Q30M PRN IV Hypoglycemia 10/11/19 00:30 01/09/20 00:29 Dextrose (Dextrose 50%) 50 ml Q30M PRN IV Hypoglycemia 10/11/19 00:30 01/09/20 00:29 Docusate Sodium (Colace) 100 mg THREE TIMES A DAY ORAL 10/12/19 13:00 11/11/19 12:59 Heparin Sodium (Porcine) (Heparin 5000 units/ml) 5,000 units EVERY 12 HOURS SUBQ 10/11/19 09:00 11/25/19 08:59 10/12/19 08:37 Heparin Sodium/ Sodium Chloride (Heparin 1000 units/500ml Premix) 1,000 unit ONCE PRN IV radiology procedure 10/11/19 12:15 10/13/19 12:14 Insulin Aspart (NovoLOG) BEFORE MEALS AND HS SUBQ 10/11/19 06:30 01/09/20 06:29 10/12/19 05:21 Lidocaine HCl (Xylocaine 1% 30ml) 30 ml ONCE PRN INJ radiology procedure 10/11/19 12:15 10/13/19 12:14 Ondansetron HCl (Zofran) 4 mg Q6H PRN IVP Nausea & Vomiting 10/11/19 00:30 11/10/19 00:29 Pantoprazole (Protonix) 40 mg EVERY 12 HOURS ORAL 10/11/19 12:00 11/10/19 11:59 10/12/19 08:34 Polyethylene Glycol (Miralax) 17 gm HSPRN PRN ORAL Constipation 10/11/19 00:30 11/10/19 00:29 Promethazine HCl/ Codeine (Phenergan with Codeine) 5 ml Q6H PRN ORAL cough 10/11/19 00:30 11/10/19 00:29 Sevelamer Carbonate (Renvela) 800 mg THREE TIMES A DAY ORAL 10/12/19 13:00 01/10/20 12:59 Zolpidem Tartrate (Ambien) 5 mg HSPRN PRN ORAL Insomnia 10/11/19 00:30 10/18/19 00:29 Assessment/Plan Problems: (1) Pneumonia due to COVID-19 virus (2) Pulmonary edema (3) ESRD (end stage renal disease) (4) Suspected COVID-19 virus infection (5) Chronic renal failure, stage 4 (severe) (6) Diabetes mellitus (7) History of hypertension Assessment/Plan got dialyzed yesterday CXR today is unchaged Respiratory treatment titrate fio2 to sat of 92% IV abx ID to see sliding scale diabetic diet check sputum Renal to arrange for HD again HD access placement by radiology was successful Kemar Tillman MD Oct 12, 2019 11:25
--- NOTE | 2019-10-12 13:42 | Nephrology Progress Note ---
Assessment/Plan Problem List: (1) COVID-19 (2) ESRD (end stage renal disease) (3) Pulmonary edema (4) History of hypertension (5) Diabetes mellitus Assessment ESRD (end stage renal disease) COVID-19 Dyspnea HTN DM Plan Plan: Patient was dialyzed last night. He felt better after dialysis. Will repeat dialysis tomorrow. Blood pressure medication adjusted. Continue to monitor electrolytes and renal parameters. Continue per consultants. Chest x-ray: IMPRESSION: 1. Extensive bilateral mid and lower lung patchy airspace opacities could represent multifocal pneumonia including viral pneumonia. This can also be seen with pulmonary edema. 2. Mildly prominent cardio mediastinal silhouette, likely due at least in part to portable technique. 3. If there is further concern, consider CT. Subjective ROS Limited/Unobtainable: No Constitutional: Reports: malaise, weakness Objective Objective Last 24 Hour Vital Signs Date Time Temp Pulse Resp B/P (MAP) Pulse Ox O2 Delivery O2 Flow Rate FiO2 10/12/19 12:31 168/81 10/12/19 09:09 98.1 10/12/19 09:00 Nasal Cannula 5.0 10/12/19 08:00 96 10/12/19 08:00 98.1 91 20 160/71 (100) 95 10/12/19 05:08 150/72 10/12/19 04:00 97.8 102 20 150/72 (98) 95 10/12/19 03:44 88 10/12/19 00:00 98.2 101 20 159/87 (111) 94 10/11/19 23:35 88 10/11/19 22:17 170/71 10/11/19 21:00 Nasal Cannula 6.0 10/11/19 20:00 97.4 94 19 170/71 (104) 94 10/11/19 20:00 102 10/11/19 16:00 94 10/11/19 16:00 96.8 90 28 178/75 (109) 92 10/11/19 13:55 159/93 Intake and Output 10/11/19 10/12/19 19:00 07:00 Intake Total 100 ml 1085 ml Output Total 250 ml 2600 ml Balance -150 ml -1515 ml Intake Oral 100 ml 700 ml IV Total 385 ml Output Urine Total 250 ml 600 ml Hemodialysis UF 2000 ml Laboratory Tests 10/11/19 17:20: POC Whole Blood Glucose 287H 10/11/19 20:01: POC Whole Blood Glucose 154H 10/12/19 04:45: White Blood Count 8.8, Red Blood Count 2.88L, Hemoglobin 8.7L, Hematocrit 26.5L , Mean Corpuscular Volume 92, Mean Corpuscular Hemoglobin 30.3, Mean Corpuscular Hemoglobin Concent 32.9, Red Cell Distribution Width 12.7, Platelet Count 224, Mean Platelet Volume 5.1L, Neutrophils (%) (Auto) , Lymphocytes (%) ( Auto) , Monocytes (%) (Auto) , Eosinophils (%) (Auto) , Basophils (%) (Auto) , Differential Total Cells Counted 100, Neutrophils % (Manual) 88H, Lymphocytes % (Manual) 7L, Monocytes % (Manual) 5, Eosinophils % (Manual) 0, Basophils % ( Manual) 0, Band Neutrophils 0, Platelet Estimate Adequate, Platelet Morphology Normal, Polychromasia 1+, Hypochromasia 1+, Erythrocyte Sedimentation Rate 110H , Reticulocyte Count 1.0, Prothrombin Time 11.1, Prothromb Time International Ratio 1.0, Activated Partial Thromboplast Time 32, Sodium Level 138, Potassium Level 3.7, Chloride Level 97L, Carbon Dioxide Level 26, Anion Gap 15, Blood Urea Nitrogen 49H, Creatinine 6.3H, Estimat Glomerular Filtration Rate 9.1, Glucose Level 161#H, Calcium Level 8.8, Phosphorus Level 5.3H, Magnesium Level 2.0, Iron Level 25L, Total Iron Binding Capacity 178L, Percent Iron Saturation 14L, Unsaturated Iron Binding 153, Total Bilirubin 0.3, Aspartate Amino Transf ( AST/SGOT) 25, Alanine Aminotransferase (ALT/SGPT) 17, Alkaline Phosphatase 71, Lactate Dehydrogenase 330H, C-Reactive Protein, Quantitative 31.9H, Pro-B-Type Natriuretic Peptide 5391H, Total Protein 8.1, Albumin 2.3L, Globulin 5.8, Albumin/Globulin Ratio 0.4L, Triglycerides Level 188H, Cholesterol Level 123, LDL Cholesterol 62, HDL Cholesterol 27L, Cholesterol/HDL Ratio 4.6H, Carcinoembryonic Antigen [Pending], Vitamin B12 Level > 2000H, Folate 16.6, Thyroid Stimulating Hormone (TSH) 0.621 10/12/19 05:11: POC Whole Blood Glucose 154H 10/12/19 12:03: POC Whole Blood Glucose 326H Height (Feet): 5 Height (Inches): 9.00 Weight (Pounds): 218 General Appearance: mild distress Cardiovascular: tachycardia Respiratory/Chest: decreased breath sounds Abdomen: distended Vel Michaels MD Oct 12, 2019 13:42
--- NOTE | 2019-10-12 14:17 | Cardiology Progress Note ---
Assessment/Plan Assessment/Plan watch on tele hold off echo avoid staff exposure unless absolutely needed repeat ekg adn trop tomorrow need better bp controld if possible avoid beta agonist use or other stimulant if has recurrent prologn afib may adjsut plans [id number] Objective Last 24 Hour Vital Signs Date Time Temp Pulse Resp B/P (MAP) Pulse Ox O2 Delivery O2 Flow Rate FiO2 10/12/19 12:31 168/81 10/12/19 09:09 98.1 10/12/19 09:00 Nasal Cannula 5.0 10/12/19 08:00 96 10/12/19 08:00 98.1 91 20 160/71 (100) 95 10/12/19 05:08 150/72 10/12/19 04:00 97.8 102 20 150/72 (98) 95 10/12/19 03:44 88 10/12/19 00:00 98.2 101 20 159/87 (111) 94 10/11/19 23:35 88 10/11/19 22:17 170/71 10/11/19 21:00 Nasal Cannula 6.0 10/11/19 20:00 97.4 94 19 170/71 (104) 94 10/11/19 20:00 102 10/11/19 16:00 94 10/11/19 16:00 96.8 90 28 178/75 (109) 92 Intake and Output 10/11/19 10/12/19 19:00 07:00 Intake Total 100 ml 1085 ml Output Total 250 ml 2600 ml Balance -150 ml -1515 ml Intake Oral 100 ml 700 ml IV Total 385 ml Output Urine Total 250 ml 600 ml Hemodialysis UF 2000 ml Laboratory Tests Test 10/11/19 17:20 10/11/19 20:01 10/12/19 04:45 10/12/19 05:11 POC Whole Blood Glucose 287 MG/DL (74-106) H 154 MG/DL (74-106) H 154 MG/DL (74-106) H White Blood Count 8.8 K/UL (4.8-10.8) Red Blood Count 2.88 M/UL (4.70-6.10) L Hemoglobin 8.7 G/DL (14.2-18.0) L Hematocrit 26.5 % (42.0-52.0) L Mean Corpuscular Volume 92 FL (80-99) Mean Corpuscular Hemoglobin 30.3 PG (27.0-31.0) Mean Corpuscular Hemoglobin Concent 32.9 G/DL (32.0-36.0) Red Cell Distribution Width 12.7 % (11.6-14.8) Platelet Count 224 K/UL (150-450) Mean Platelet Volume 5.1 FL (6.5-10.1) L Neutrophils (%) (Auto) % (45.0-75.0) Lymphocytes (%) (Auto) % (20.0-45.0) Monocytes (%) (Auto) % (1.0-10.0) Eosinophils (%) (Auto) % (0.0-3.0) Basophils (%) (Auto) % (0.0-2.0) Differential Total Cells Counted 100 Neutrophils % (Manual) 88 % (45-75) H Lymphocytes % (Manual) 7 % (20-45) L Monocytes % (Manual) 5 % (1-10) Eosinophils % (Manual) 0 % (0-3) Basophils % (Manual) 0 % (0-2) Band Neutrophils 0 % (0-8) Platelet Estimate Adequate Platelet Morphology Normal Polychromasia 1+ Hypochromasia 1+ Erythrocyte Sedimentation Rate 110 MM/HR (0-20) H Reticulocyte Count 1.0 % (0.5-2.0) Prothrombin Time 11.1 SEC (9.30-11.50) Prothromb Time International Ratio 1.0 (0.9-1.1) Activated Partial Thromboplast Time 32 SEC (23-33) Sodium Level 138 MMOL/L (136-145) Potassium Level 3.7 MMOL/L (3.5-5.1) Chloride Level 97 MMOL/L (98-107) L Carbon Dioxide Level 26 MMOL/L (21-32) Anion Gap 15 mmol/L (5-15) Blood Urea Nitrogen 49 mg/dL (7-18) H Creatinine 6.3 MG/DL (0.55-1.30) H Estimat Glomerular Filtration Rate 9.1 mL/min (>60) Glucose Level 161 MG/DL (74-106) #H Calcium Level 8.8 MG/DL (8.5-10.1) Phosphorus Level 5.3 MG/DL (2.5-4.9) H Magnesium Level 2.0 MG/DL (1.8-2.4) Iron Level 25 ug/dL (50-175) L Total Iron Binding Capacity 178 ug/dL (250-450) L Percent Iron Saturation 14 % (15-50) L Unsaturated Iron Binding 153 ug/dL (112-346) Total Bilirubin 0.3 MG/DL (0.2-1.0) Aspartate Amino Transf (AST/SGOT) 25 U/L (15-37) Alanine Aminotransferase (ALT/SGPT) 17 U/L (12-78) Alkaline Phosphatase 71 U/L (46-116) Lactate Dehydrogenase 330 U/L (81-234) H C-Reactive Protein, Quantitative 31.9 mg/dL (0.00-0.90) H Pro-B-Type Natriuretic Peptide 5391 pg/mL (0-125) H Total Protein 8.1 G/DL (6.4-8.2) Albumin 2.3 G/DL (3.4-5.0) L Globulin 5.8 g/dL Albumin/Globulin Ratio 0.4 (1.0-2.7) L Triglycerides Level 188 MG/DL (30-150) H Cholesterol Level 123 MG/DL (< 200) LDL Cholesterol 62 mg/dL (<100) HDL Cholesterol 27 MG/DL (40-60) L Cholesterol/HDL Ratio 4.6 (3.3-4.4) H Carcinoembryonic Antigen Pending Vitamin B12 Level > 2000 PG/ML (193-986) H Folate 16.6 NG/ML (8.6-58.9) Thyroid Stimulating Hormone (TSH) 0.621 uiU/mL (0.358-3.740) Test 10/12/19 12:03 POC Whole Blood Glucose 326 MG/DL (74-106) H Microbiology Date/Time Source Procedure Growth Status 10/10/19 22:50 Blood Blood Culture - Preliminary NO GROWTH AFTER 24 HOURS Resulted 10/10/19 22:35 Blood Blood Culture - Preliminary NO GROWTH AFTER 24 HOURS Resulted 10/10/19 22:35 Nasopharynx SARS-CoV-2 RdRp Gene Assay - Final Complete Yaniv Bose MD Oct 12, 2019 14:17
--- NOTE | 2019-10-12 18:34 | Internal Med Progress Note ---
Subjective Date of Service: Oct 12, 2019 Physician Name Richmond Arora Attending Physician Milo Arceo MD Current Medications Medications (Trade) Dose Ordered Sig/Adan Route PRN Reason Start Time Stop Time Status Last Admin Dose Admin Acetaminophen (Tylenol) 650 mg Q4H PRN ORAL fever 10/11/19 00:30 11/10/19 00:29 10/12/19 08:39 Albuterol/ Ipratropium (Albuterol/ Ipratropium) 3 ml Q6H PRN HHN dyspnea 10/11/19 00:30 10/16/19 00:29 Amlodipine Besylate (Norvasc) 10 mg DAILY ORAL 10/12/19 13:45 11/11/19 13:44 10/12/19 14:34 Azithromycin 250 mg/Sodium Chloride 275 ml @ 275 mls/hr Q24HRS IV 10/11/19 21:00 10/16/19 20:59 10/11/19 22:17 Ceftriaxone Sodium 1 gm/ Sodium Chloride 55 ml @ 110 mls/hr Q24H IVPB 10/11/19 20:00 10/18/19 19:59 10/11/19 21:30 Chlorhexidine Gluconate (Heaven-Hex 2%) 1 applic DAILY@2000 TOPIC 10/12/19 20:00 01/10/20 19:59 Clonidine HCl (Catapres Tab) 0.1 mg EVERY 8 HOURS ORAL 10/11/19 14:00 01/09/20 13:59 10/12/19 14:34 Clonidine HCl (Catapres Tab) 0.1 mg Q4H PRN ORAL For High Blood Pressure 10/11/19 00:30 01/09/20 00:29 10/12/19 12:31 Dexamethasone (Decadron) 4 mg DAILY ORAL 10/11/19 09:00 11/10/19 08:59 10/12/19 08:34 Dextrose (Dextrose 50%) 25 ml Q30M PRN IV Hypoglycemia 10/11/19 00:30 01/09/20 00:29 Dextrose (Dextrose 50%) 50 ml Q30M PRN IV Hypoglycemia 10/11/19 00:30 01/09/20 00:29 Docusate Sodium (Colace) 100 mg THREE TIMES A DAY ORAL 10/12/19 13:00 11/11/19 12:59 10/12/19 17:43 Heparin Sodium (Porcine) (Heparin 5000 units/ml) 5,000 units EVERY 12 HOURS SUBQ 10/11/19 09:00 11/25/19 08:59 10/12/19 08:37 Heparin Sodium/ Sodium Chloride (Heparin 1000 units/500ml Premix) 1,000 unit ONCE PRN IV radiology procedure 10/11/19 12:15 10/13/19 12:14 Insulin Aspart (NovoLOG) BEFORE MEALS AND HS SUBQ 10/11/19 06:30 01/09/20 06:29 10/12/19 17:40 Lidocaine HCl (Xylocaine 1% 30ml) 30 ml ONCE PRN INJ radiology procedure 10/11/19 12:15 10/13/19 12:14 Ondansetron HCl (Zofran) 4 mg Q6H PRN IVP Nausea & Vomiting 10/11/19 00:30 11/10/19 00:29 Pantoprazole (Protonix) 40 mg EVERY 12 HOURS ORAL 10/11/19 12:00 11/10/19 11:59 10/12/19 08:34 Polyethylene Glycol (Miralax) 17 gm HSPRN PRN ORAL Constipation 10/11/19 00:30 11/10/19 00:29 Promethazine HCl/ Codeine (Phenergan with Codeine) 5 ml Q6H PRN ORAL cough 10/11/19 00:30 11/10/19 00:29 Sevelamer Carbonate (Renvela) 800 mg THREE TIMES A DAY ORAL 10/12/19 13:00 01/10/20 12:59 10/12/19 17:43 Zolpidem Tartrate (Ambien) 5 mg HSPRN PRN ORAL Insomnia 10/11/19 00:30 10/18/19 00:29 Allergies: Coded Allergies: No Known Allergies (Unverified , 10/10/19) ROS Limited/Unobtainable: No Constitutional: Reports: no symptoms HEENT: Reports: no symptoms Cardiovascular: Reports: no symptoms Respiratory: Reports: shortness of breath Gastrointestinal/Abdominal: Reports: no symptoms Genitourinary: Reports: no symptoms Neurologic/Psychiatric: Reports: no symptoms Subjective 63 YO M admitted with shortness of breath. Now COVID 19 pneumonia. Cover for Int Dg-DR Arceo Objective Last Vital Signs Date Time Temp Pulse Resp B/P (MAP) Pulse Ox O2 Delivery O2 Flow Rate FiO2 10/12/19 16:00 98.2 100 19 136/82 (100) 94 10/12/19 09:00 Nasal Cannula 5.0 Laboratory Tests Test 10/11/19 20:01 10/12/19 04:45 10/12/19 05:11 10/12/19 12:03 POC Whole Blood Glucose 154 MG/DL (74-106) H 154 MG/DL (74-106) H 326 MG/DL (74-106) H White Blood Count 8.8 K/UL (4.8-10.8) Red Blood Count 2.88 M/UL (4.70-6.10) L Hemoglobin 8.7 G/DL (14.2-18.0) L Hematocrit 26.5 % (42.0-52.0) L Mean Corpuscular Volume 92 FL (80-99) Mean Corpuscular Hemoglobin 30.3 PG (27.0-31.0) Mean Corpuscular Hemoglobin Concent 32.9 G/DL (32.0-36.0) Red Cell Distribution Width 12.7 % (11.6-14.8) Platelet Count 224 K/UL (150-450) Mean Platelet Volume 5.1 FL (6.5-10.1) L Neutrophils (%) (Auto) % (45.0-75.0) Lymphocytes (%) (Auto) % (20.0-45.0) Monocytes (%) (Auto) % (1.0-10.0) Eosinophils (%) (Auto) % (0.0-3.0) Basophils (%) (Auto) % (0.0-2.0) Differential Total Cells Counted 100 Neutrophils % (Manual) 88 % (45-75) H Lymphocytes % (Manual) 7 % (20-45) L Monocytes % (Manual) 5 % (1-10) Eosinophils % (Manual) 0 % (0-3) Basophils % (Manual) 0 % (0-2) Band Neutrophils 0 % (0-8) Platelet Estimate Adequate Platelet Morphology Normal Polychromasia 1+ Hypochromasia 1+ Erythrocyte Sedimentation Rate 110 MM/HR (0-20) H Reticulocyte Count 1.0 % (0.5-2.0) Prothrombin Time 11.1 SEC (9.30-11.50) Prothromb Time International Ratio 1.0 (0.9-1.1) Activated Partial Thromboplast Time 32 SEC (23-33) Sodium Level 138 MMOL/L (136-145) Potassium Level 3.7 MMOL/L (3.5-5.1) Chloride Level 97 MMOL/L (98-107) L Carbon Dioxide Level 26 MMOL/L (21-32) Anion Gap 15 mmol/L (5-15) Blood Urea Nitrogen 49 mg/dL (7-18) H Creatinine 6.3 MG/DL (0.55-1.30) H Estimat Glomerular Filtration Rate 9.1 mL/min (>60) Glucose Level 161 MG/DL (74-106) #H Calcium Level 8.8 MG/DL (8.5-10.1) Phosphorus Level 5.3 MG/DL (2.5-4.9) H Magnesium Level 2.0 MG/DL (1.8-2.4) Iron Level 25 ug/dL (50-175) L Total Iron Binding Capacity 178 ug/dL (250-450) L Percent Iron Saturation 14 % (15-50) L Unsaturated Iron Binding 153 ug/dL (112-346) Total Bilirubin 0.3 MG/DL (0.2-1.0) Aspartate Amino Transf (AST/SGOT) 25 U/L (15-37) Alanine Aminotransferase (ALT/SGPT) 17 U/L (12-78) Alkaline Phosphatase 71 U/L (46-116) Lactate Dehydrogenase 330 U/L (81-234) H C-Reactive Protein, Quantitative 31.9 mg/dL (0.00-0.90) H Pro-B-Type Natriuretic Peptide 5391 pg/mL (0-125) H Total Protein 8.1 G/DL (6.4-8.2) Albumin 2.3 G/DL (3.4-5.0) L Globulin 5.8 g/dL Albumin/Globulin Ratio 0.4 (1.0-2.7) L Triglycerides Level 188 MG/DL (30-150) H Cholesterol Level 123 MG/DL (< 200) LDL Cholesterol 62 mg/dL (<100) HDL Cholesterol 27 MG/DL (40-60) L Cholesterol/HDL Ratio 4.6 (3.3-4.4) H Carcinoembryonic Antigen Pending Vitamin B12 Level > 2000 PG/ML (193-986) H Folate 16.6 NG/ML (8.6-58.9) Thyroid Stimulating Hormone (TSH) 0.621 uiU/mL (0.358-3.740) Test 10/12/19 17:34 POC Whole Blood Glucose Pending Microbiology Date/Time Source Procedure Growth Status 10/10/19 22:50 Blood Blood Culture - Preliminary NO GROWTH AFTER 24 HOURS Resulted 10/10/19 22:35 Blood Blood Culture - Preliminary NO GROWTH AFTER 24 HOURS Resulted 10/10/19 22:35 Nasopharynx SARS-CoV-2 RdRp Gene Assay - Final Complete Intake and Output 10/11/19 10/12/19 19:00 07:00 Intake Total 100 ml 1085 ml Output Total 250 ml 2600 ml Balance -150 ml -1515 ml Intake Oral 100 ml 700 ml IV Total 385 ml Output Urine Total 250 ml 600 ml Hemodialysis UF 2000 ml Objective PHYSICAL EXAMINATION: GENERAL: Patient is well-developed and well-nourished male, who is in moderate respiratory distress. HEENT: Eyes, pupils are equal and responsive to light and accommodation. Extraocular movements are intact. NECK: Supple without lymphadenopathy. CHEST: Lungs are clear to auscultation bilaterally without wheezes or rales. CARDIOVASCULAR: Regular rhythm and rate. S1-S2 are normal without murmurs, rubs, or gallops. ABDOMEN: Soft, nontender, nondistended. Positive bowel sounds. No evidence of hepatosplenomegaly. Currently, no rebound or guarding noted. EXTREMITIES: Negative for clubbing, cyanosis, or edema. RECTAL/GENITAL: Not performed. NEUROLOGIC: Cranial nerves II through XII grossly intact without focal deficits. Motor strength is 5/5 bilaterally. Deep tendon reflexes are 2+ plantar. Assessment/Plan Assessment/Plan ASSESSMENT: This is a 63-year-old male. 1. COVID-19 positive. 2. Bilateral pneumonia. 3. Shortness of breath. 4. End Stage renal failure. 5. Diabetes type 2. 6. Uncontrolled hypertension. 7. Hypercholesteremia. TREATMENT: 1. Bilateral pneumonia/COVID-19 positive. An Infectious Disease consultation has been obtained with Dr. Gunderson. Patient has been started empirically on ceftriaxone and azithromycin for underlying bacterial pneumonia. Patient has been started on Decadron. We will follow recommendations of Pulmonary and Infectious Disease. Pulmonary consultation has been obtained with Dr. Kemar Tillman. 2. Diabetes type 2. Patient has been placed on regular insulin sliding scale. 3. Uncontrolled hypertension. Continue antihypertensive medications as above. Patient has been started empirically on clonidine 0.1 mg p.o. q.4h. p.r.n. 4. End stage renal failure. A Nephrology consultation has been obtained with Dr. Vel Michaels. Hemodialysis 10/11/19 and 10/13/19 5. Hypercholesterolemia. Continue atorvastatin as above. Richmond Arora MD Oct 12, 2019 18:34
--- NOTE | 2019-10-12 19:45 | Consultation ---
DATE OF CONSULTATION: 10/12/2019 CARDIOLOGY CONSULTATION CONSULTING PHYSICIAN: Yaniv Bose MD. REFERRING PHYSICIAN: Kemar Tillman MD. REASON FOR REFERRAL: Episode of atrial fibrillation. HISTORY OF PRESENT ILLNESS: This is a 63-year-old gentleman who was admitted through the emergency room on 10/11/2019. The patient was diagnosed with active COVID infection and I have not seen the patient. The patient presented to the emergency room because of shortness of breath, brought by emergency medical services from home. O2 saturations were low on room air. He had tested positive for COVID last week and started getting short of breath a few days prior to his admission. Denied any chest pain. Denied any fevers or chills. Denied any nausea, vomiting, or aggravating symptoms. He has been admitted to the hospital here at [facility] and during this hospitalization, he has been on monitor and episodes of atrial fibrillation was noted and therefore this consultation requested. Because of active COVID infection, I have actually not seen the patient. This consultation is performed from review of the patient's chart and reviewing other physician's notations. According to nursing staff, patient was awake and alert x4 with no shortness of breath or respiratory distress on droplet and contact precautions because of COVID-19 positive test. Had a dialysis catheter on the right side. Dialysis was last performed on 10/11/2019 and 2 liters were removed. The patient was ambulatory with steady gait. REVIEW OF SYSTEMS: As per Dr. Arora's notation.CONSTITUTIONAL: The patient denied any weight loss or weight gain and denied any fevers or chills. HEENT: The patient denied any ear or throat pain. CARDIAC: The patient denied any chest pain or palpitations. PULMONARY: The patient complains of shortness of breath. Denies any wheezing. Does have a cough that is productive of yellow sputum. GASTROINTESTINAL: Denied any nausea or vomiting or diarrhea or constipation. GENITOURINARY: Denied any discomfort on urination or increased frequency of urination. PAST MEDICAL HISTORY: Positive for diabetes and high blood pressure and of course the COVID-19 that was diagnosed apparently a week before his admission. PHYSICAL EXAMINATION: GENERAL: At time of his admission showed no apparent distress. Nontoxic looking apparently. NECK: Supple. Normal range of motion. No masses. LUNGS: Appeared to be normal. Nontender. Crackles were noted. CARDIAC: Regular rhythm. GASTROINTESTINAL: Normal bowel sounds. Nontender, soft, nondistended. No guarding. No rebound. EXTREMITIES: Apparently showed no edema. NEUROLOGICAL: He is responsive and apparently speech was normal. VITAL SIGNS: Today, blood pressure of 150/72 to 160/71, temperature today 98.1 with a heart rate of 91 to 102. LABORATORY AND DIAGNOSTIC DATA: White count 8.8, hemoglobin 8.7, platelet count 224 with 7% lymphopenia. Platelets were adequate. Sedimentation rate was 110. Reticulocyte count of 1.0. Blood gases, pH of 7.26, pCO2 38, pO2 of 126, and bicarb of 17, 97% saturation. His blood sugar was anywhere between 154 to 326. His phosphorus of 5.3, magnesium of 2, iron of 25, and 14% saturation. His ferritin in the emergency room was only 249. His CRP was 31.9 and his proBNP was 5300. CEA pending at this time. Coags, INR 1 and PTT of 32. D-dimer elevated at 1.26. Tox screen was negative. Urinalysis shows 0 to 2 wbc's and 2 to 4 rbc's. Hepatitis B surface antigen was negative. A chest x-ray performed in the emergency room showed extensive bilateral mid and lower lung patchy airspace opacities, could represent multifocal pneumonia or pulmonary edema, prominent cardiac silhouette. His chest x-ray subsequently after he had dialysis over 2 liters being taken off, this was performed today bilateral left greater than right infiltrates are unchanged. The heart size was normal. His electrocardiogram shows basically sinus rhythm with left axis deviation with sinus tachycardia. No really extensive significant ST or T-wave abnormalities. Rhythm strips shows sinus rhythm, although there were bouts of what appeared to be atrial fibrillation intertwined with episodes of sinus. These were documented mainly on EKG tracings from 10/11/2019 at approximately 5:27 p.m. The tachycardia was moderate in origin close to 104 or 150, but the documentation of 124. ASSESSMENT AND PLAN: 1. Pneumonia COVID-19. 2. COVID-19 virus infection. 3. Paroxysmal episodes of atrial fibrillation. 4. Diabetes mellitus. 5. Hypertension. 6. Renal failure and dialysis dependence. Dr. Tillman, this patient was seen in cardiac consultation. The patient's thyroid-stimulating hormone was normal. Vitamin B12 was also normal. Folic acid was normal. Total cholesterol was 188 with LDL of between 47 and 62. His telemetry does show some short runs of possible atrial fibrillation. We would continue to monitor and avoid any stimulant usage including beta agonist inhaler if possible and prevent increased risk of atrial fibrillation recurrence. He is at risk of developing atrial fibrillation mainly because of his pulmonary process. Nevertheless, he should be monitored on telemetry. An echocardiogram will not be ordered unless the concern about possible congestive heart failure being raised. The cardiac enzymes will be repeated. EKG will be repeated in the morning. We will follow up on those results, but he is getting dialysis under the direction of Dr. Michaels here and he has had 2 liters removed. His blood pressure remains elevated. He may require adjustment of his medications for blood pressure control, possibly with the addition of some ARB's or KADEN inhibitors now that he is on dialysis. He is on maximum doses of calcium channel bryan, Norvasc that will be continued for the time being. Yaniv Bose M.D. DR: LATISHA JOB#: [id number] CC:
[2019-10-12] MEDS ORDERED: Dyna-Hex 2% Top Sol 2oz TOPIC SCH (20:00)
[2019-10-12] MEDS: cefTRIAXone 1 GM in NS 55 ML IVPB SCH (20:00)
[2019-10-12] MEDS: Azithromycin 250 MG in NS 275 ML IV SCH (21:00)
[2019-10-13] VITALS: BP 156/79
--- NOTE | 2019-10-14 15:51 | Discharge Summary ---
Discharge Summary Discharge Summary _ DATE OF ADMISSION: 10/10/2019 DATE OF DISCHARGE: 10/13/2019 DISCHARGED BY: Dr. Arceo REASON FOR ADMISSION: 63 years old male with past medical history of diabetes mellitus and hypertension brought by paramedics home due to hypoxia. Apparently patient was tested positive for COVID last week. Patient started get short of breath 2 days ago. He denied chest pain. He denied fever and chills. He denied nausea and vomiting. Upon evaluation patient had low-grade fever was tachycardic tachypneic hypoxic requiring 6 L of oxygen via nasal cannula still saturating 84%. Patient also showed significantly elevated blood pressure 220/110. Rapid COVID testing in emergency room was positive. Laboratory work-up revealed no leukocytosis hemoglobin 9.5 hematocrit 28.8 platelet count 190. Lactic acid 0.7. Did sodium 131, potassium 4.2. BUN 68, creatinine 7.9. Glucose 261. Inflammatory marker revealed d-dimer 1.26, ferritin 249, LDH 304, and CRP 52.3. EKG revealed sinus tachycardia no acute ischemic changes. Chest x-ray revealed bilateral patchy infiltrates. In emergency department patient received Decadron, azithromycin, ceftriaxone, Lovenox, MDI with Proventil and admitted for further management. CONSULTANTS: animal geneticist Dr. Bose pulmonary Dr. Tillman heel caser Dr. Michaels [facility] COURSE: [] Patient admitted to telemetry floor. Patient was kept in isolation. Supplemental oxygen provided and titrated to keep pulse oximetry above 92%. MDI treatment provided as needed. Antitussive provided as needed. Patient started on empiric azithromycin and Ceftin and ceftriaxone along with the Decadron. At some point patient was 100% nonrebreathing mask. Patient required placement hemodialysis heel caser talk with the patient patient required start of hemodialysis patient was agreeable to hemodialysis subsequently right right transjugular temporary dialysis catheter was placed on 719 and patient undergone dialysis patient felt better after dialysis was able to be closely monitor electrolytes corrected further corrected as needed volumes were closely monitored creatinine down to 6.3 prior to transfer Blood cultures were negative. Blood pressure was managed with the calcium channel bryan. Clonidine was on board as needed for blood pressure spike. DVT and GI prophylaxis provided. Blood sugar was managed with sliding scale of insulin. Supportive care provided. Bowel regimen instituted. Transfer was arranged to [facility] as per insurance patient was stable for transfer FINAL DIAGNOSES: COVID-19 bilateral pneumonia Acute renal failure End-stage renal disease , necessitating initiation of dialysis Pulmonary edema Hypertension with initial hypertensive urgency-improved Diabetes mellitus type 2 Anemia of chronic kidney disease DISCHARGE MEDICATIONS: See Medication Reconciliation list. DISCHARGE INSTRUCTIONS: Patient was transferred to [facility] for further management. I have been assigned to dictate discharge summary for this account. I was not involved in the patient's management. Rebekah Stacy NP Oct 14, 2019 15:51
== END 2019-10-13 02:08 | disposition short-term general hospital, planned readmission (82) | DRG 177 ==
LOC: EDBD 22:06 → EMR 22:30 → 2W 22:43 → EDBEDREQ 10-11 00:40 → 2W 10-11 11:05 → 2E 10-12 05:59 → 2W 10-12 06:07 → 2E 10-12 06:08
PROC: 05HM33Z Insertion of Infusion Device into Right Internal Jugular Vein, Percutaneous Approach (ICD-10-PCS; principal; 2019-10-11)
PROC: 5A1D70Z Performance of Urinary Filtration, Intermittent, Less than 6 Hours Per Day (ICD-10-PCS; 2019-10-12)
DX: U07.1 COVID-19 (principal); N18.6 End stage renal disease; J12.89 Other viral pneumonia; I12.0 Hypertensive chronic kidney disease with stage 5 chronic kidney disease or end stage renal disease; N17.9 Acute kidney failure, unspecified; E11.22 Type 2 diabetes mellitus with diabetic chronic kidney disease; Z79.82 Long term (current) use of aspirin; Z79.4 Long term (current) use of insulin; I16.0 Hypertensive urgency; D63.1 Anemia in chronic kidney disease; I48.0 Paroxysmal atrial fibrillation; E78.00 Pure hypercholesterolemia, unspecified; R09.02 Hypoxemia
CPT/HCPCS: 36415; 36569; 36600; 71045; 76937; 80053; 80061; 80307; 81001; 81003; 82378; 82550; 82553; 82607; 82728; 82746; 82803; 82962; 83036; 83540; 83550; 83605; 83615; 83735; 83880; 84100; 84133; 84300; 84443; 84484; 84550; 85007; 85025; 85044; 85060; 85379; 85610; 85651; 85730; 86140; 86706; 87040; 89050; 93005; 93306; 96365; 96368; 96372; 96375; 99291; J1815; U0002